=== PATIENT | female | born 1990 ===

== ENCOUNTER 2017-01-05 15:45 | Emergency (ER) | payer SELFPAY ==
[2017-01-05 16:08] VITALS: BP 104/67; PULSE 79; RESP 99; TEMP 98.4; O2SAT 100
--- NOTE | 2017-01-05 17:34 | C.PDOC ---
History Of Present Illness 26 y/o female presents to the ED with complains of persistent left 1st toe pain x3 days after "cutting toe nail funny". Pt was seen at ED in [place] 2 nights ago for same, incision was made on one side toe nail, no drainage at the time. Pt still with pain and swelling to area, stating (+) pus drainage from both sides of toe. Pt denies fever, trauma, weakness, numbness or any other complaints. Time Seen by Provider: 01/05/17 17:22 Chief Complaint (Nursing): Abnormal Skin Integrity History Per: Patient History/Exam Limitations: no limitations Onset/Duration Of Symptoms: Days Current Symptoms Are (Timing): Still Present Quality Of Symptoms: Painful, Swollen Severity: Mild Recent travel outside of the [place]: No Past Medical History Reviewed: Historical Data, Nursing Documentation, Vital Signs Vital Signs: Last Vital Signs Temp 98.4 F 01/05/17 16:04 Pulse 79 01/05/17 16:04 Resp 99 H 01/05/17 16:04 BP 104/67 01/05/17 16:04 Pulse Ox 100 01/05/17 17:38 Family History: States: Unknown Family Hx - Social History Hx Alcohol Use: Yes Hx Substance Use: No - Immunization History Hx Tetanus Toxoid Vaccination: Yes Hx Influenza Vaccination: No Hx Pneumococcal Vaccination: No Review Of Systems Except As Marked, All Systems Reviewed And Found Negative. Constitutional: Negative for: Fever, Chills Musculoskeletal: Positive for: Other (pain and swelling to left 1st toe with pus drainage) Neurological: Negative for: Weakness, Numbness Physical Exam - Physical Exam Appears: Non-toxic, No Acute Distress Skin: Warm, Dry Head: Atraumatic, Normacephalic Extremity: Normal ROM, No Deformity, Other (paronychia to 1st toe to bilateral edges of nail with local erythema, nail bed normal; no fluctuance) Neurological/Psych: Oriented x3, Normal Speech, Normal Motor, Normal Sensation ED Course And Treatment O2 Sat by Pulse Oximetry: 100 (room air) Pulse Ox Interpretation: Normal Medical Decision Making Medical Decision Making: Discussed plan with patient, antibiotics, soaks and follow up with podiatry. Pt offered digital block for pain control which patient declined. Disposition Counseled Patient/Family Regarding: Diagnosis, Need For Followup, Rx Given - Disposition Referrals: [facility] [Outside] [facility] [Outside] [facility] [Outside] Disposition Time: 17:34 Additional Instructions: Los baos calientes consisten en poner la mano en agua muy caliente: no lo suficientemente caliente para hacer vanessa, joel lo suficientemente caliente para hacer que la mano muy adrian. El inupiat del grifo es generalmente bastante caliente, y la refresca abajo con fro si usted tiene que. El yen significa que hay un gran aumento del flujo sanguneo a la mano, trayendo las clulas naturales de johnna contra la infeccin del cuerpo al sitio, as dez un montn de antibiticos. El remojo debe ser de unos 20 minutos de tamiko, ya menudo el inupiat necesita ser reemplazado. Si se enfra antes de que transcurran los 20 minutos, coloque ms inupiat. Los baos calientes deben repetirse cruzito veces al da. Prescriptions: Acetaminophen/Codeine [Tylenol/Codeine 300 MG/30 MG] 2 tab PO Q6H #20 tab Amoxicillin [Amoxil 500 mg Cap] 500 mg PO BID #14 cap Instructions: Paronychia (ED) Print Language: BARBADIAN - Clinical Impression Clinical Impression: Paronychia - Scribe Statement The provider has reviewed the documentation as recorded by the Manuel wang Provider Attestation: All medical record entries made by the Manuel were at my direction and personally dictated by me. I have reviewed the chart and agree that the record accurately reflects my personal performance of the history, physical exam, medical decision making, and the department course for this patient. I have also personally directed, reviewed, and agree with the discharge instructions and disposition.
== END 2017-01-05 17:57 | disposition home or self-care (01) ==
LOC: C.ER 15:45
DX: L03.032 Cellulitis of left toe (principal)